=== PATIENT | male | born 1965 | race Caucasian/White ===

== ENCOUNTER 2020-08-19 15:39 | Inpatient (IN) | payer OTHER ==
[2020-08-19 21:15] VITALS: BMI 23.3
[2020-08-19] MEDS ORDERED: ONDANSETRON *ODT* 4 MG TABLET SL PRN (22:56)
[2020-08-19] MEDS ORDERED: ACETAMINOPHEN 325 MG TABLET (FP) PO PRN ×2 (22:56)
[2020-08-19] MEDS ORDERED: MENTHOL/PHENOL 1 EACH UD MM PRN (22:56)
[2020-08-19] MEDS ORDERED: IBUPROFEN 400 MG TABLET (FP) PO PRN (22:56)
[2020-08-19] MEDS ORDERED: MAGNESIUM CITRATE 300 ML BOTTLE PO PRN (22:56)
[2020-08-19] MEDS ORDERED: MAGNESIUM HYDROX 2400MG/30ML ORAL SUSPENSION 30 ML CUP PO PRN (22:56)
[2020-08-19] MEDS ORDERED: MAG HYDROX/AL HYDROX/SIMETH 30 ML UNIT-DOSE CUP PO PRN (22:56)
[2020-08-19] MEDS ORDERED: cloNIDine HCL 0.1 MG TABLET PO PRN (22:56)
[2020-08-19] MEDS ORDERED: BISMUTH SUBSALICYLATE 524 MG/30 ML UD PO PRN (22:56)
[2020-08-19] MEDS ORDERED: hydrOXYzine PAMOATE 25 MG CAPSULE (FP) PO PRN (22:56)
[2020-08-19] MEDS ORDERED: METHADONE HCL 10 MG TABLET (FOR DETOX USE ONLY) PO ONE (22:56)
[2020-08-20] MEDS ORDERED: METHADONE HCL 5 MG TABLET (FOR DETOX USE ONLY) ONE (08:58)
[2020-08-20] MEDS ORDERED: METHADONE HCL 10 MG TABLET (FOR DETOX USE ONLY) ONE (08:58)
[2020-08-20] MEDS ORDERED: METHADONE (DETOX) 20 MG, METHADONE (DETOX) 5 MG PO ONE (10:00)
[2020-08-20] MEDS: NICOTINE 14 MG/24 HOURS TOPICAL PATCH TD SCH (10:09)
[2020-08-20] MEDS: PRENATAL VITAMINS W/ FOLIC ACID TABLET (FP) PO SCH (10:10)
[2020-08-20] MEDS: NICOTINE POLACRILEX 2 MG GUM BUC PRN ×4 (10:10→22:15)
[2020-08-20 12:51] LABS: HEMATOCRIT 37.6 % (35.4-49); HEMOGLOBIN 12.8 GM/dL (11.7-16.9); MCH 30.4 pg (25.7-33.7); MCHC 33.9 g/dl (32.0-35.9); MEAN CELL VOLUME 89.6 fl (80-96); MEAN PLT VOLUME 8.6 fl (7.5-11.1); PLATELET COUNT 190 K/MM3 (134-434); RDW 14.6 % (11.9-15.9); WHITE BLOOD COUNT 7.7 K/mm3 (4.0-10.0)
[2020-08-20 12:52] LABS: POTASSIUM 3.3 mmol/L (3.5-5.1)
[2020-08-20 13:04] LABS: ALBUMIN 3.6 g/dl (3.4-5.0); CALCIUM 8.8 mg/dL (8.5-10.1)
[2020-08-20 13:05] LABS: BLOOD UREA NITROGEN 19.1 mg/dL (7-18)
[2020-08-20 13:08] LABS: CREATININE 0.6 mg/dL (0.55-1.3)
[2020-08-20] MEDS: hydrOXYzine PAMOATE 50 MG CAPSULE (FP) PO PRN (18:15)
[2020-08-20] MEDS ORDERED: PRAZOSIN HCL 2 MG CAPSULE PO SCH (22:00)
[2020-08-20] MEDS: MELATONIN 5 MG TABLETS PO SCH (22:12)
[2020-08-20] MEDS: THIAMINE HCL 100 MG TABLET (FP) PO SCH (22:13)
[2020-08-20] MEDS: QUEtiapine FUMARATE 100 MG TABLET (FP) PO SCH (22:13)
[2020-08-21] MEDS ORDERED: METHADONE HCL 10 MG TABLET (FOR DETOX USE ONLY) PO ONE (10:00)
[2020-08-21] MEDS: NICOTINE 14 MG/24 HOURS TOPICAL PATCH TD SCH (10:12)
[2020-08-21] MEDS: METHOCARBAMOL 500 MG TABLET PO PRN ×2 (10:12→22:09)
[2020-08-21] MEDS: PRENATAL VITAMINS W/ FOLIC ACID TABLET (FP) PO SCH (10:12)
[2020-08-21] MEDS: POTASSIUM CHLORIDE ORAL LIQUID 20 MEQ/15 ML PO SCH ×2 (13:19→22:09)
[2020-08-21] MEDS: NICOTINE POLACRILEX 2 MG GUM BUC PRN (13:21)
[2020-08-21] MEDS: hydrOXYzine PAMOATE 50 MG CAPSULE (FP) PO PRN ×2 (17:51→22:09)
[2020-08-21] MEDS: MELATONIN 5 MG TABLETS PO SCH (22:08)
[2020-08-21] MEDS: THIAMINE HCL 100 MG TABLET (FP) PO SCH (22:08)
[2020-08-21] MEDS: QUEtiapine FUMARATE 100 MG TABLET (FP) PO SCH (22:09)
[2020-08-21] MEDS: PRAZOSIN HCL 1 MG CAPSULE PO SCH (22:10)
[2020-08-22] MEDS ORDERED: METHADONE HCL 5 MG TABLET (FOR DETOX USE ONLY) ONE (09:48)
[2020-08-22] MEDS ORDERED: METHADONE HCL 10 MG TABLET (FOR DETOX USE ONLY) ONE (09:48)
[2020-08-22] MEDS ORDERED: METHADONE (DETOX) 10 MG, METHADONE (DETOX) 5 MG PO ONE (10:00)
[2020-08-22] MEDS: hydrOXYzine PAMOATE 50 MG CAPSULE (FP) PO PRN (10:08)
[2020-08-22] MEDS: PRENATAL VITAMINS W/ FOLIC ACID TABLET (FP) PO SCH (10:08)
[2020-08-22] MEDS: POTASSIUM CHLORIDE ORAL LIQUID 20 MEQ/15 ML PO SCH ×2 (10:08→22:16)
[2020-08-22] MEDS: NICOTINE 14 MG/24 HOURS TOPICAL PATCH TD SCH (10:09)
[2020-08-22] MEDS: diazePAM 5 MG TABLET PO PRN ×2 (11:30→18:11)
[2020-08-22] MEDS: NICOTINE POLACRILEX 2 MG GUM BUC PRN (18:13)
[2020-08-22] MEDS: QUEtiapine FUMARATE 100 MG TABLET (FP) PO SCH (22:16)
[2020-08-22] MEDS: PRAZOSIN HCL 1 MG CAPSULE PO SCH (22:16)
[2020-08-22] MEDS: MELATONIN 5 MG TABLETS PO SCH (22:16)
[2020-08-22] MEDS: THIAMINE HCL 100 MG TABLET (FP) PO SCH (22:16)
[2020-08-23] MEDS ORDERED: METHADONE HCL 10 MG TABLET (FOR DETOX USE ONLY) PO ONE (10:00)
[2020-08-23] MEDS: NICOTINE 14 MG/24 HOURS TOPICAL PATCH TD SCH (10:17)
[2020-08-23] MEDS: PRENATAL VITAMINS W/ FOLIC ACID TABLET (FP) PO SCH (10:17)
[2020-08-23] MEDS: NICOTINE POLACRILEX 2 MG GUM BUC PRN ×2 (10:18→14:30)
[2020-08-23] MEDS: diazePAM 5 MG TABLET PO PRN ×2 (10:20→14:27)
[2020-08-23 14:00] VITALS: BP 115/75; PULSE 80; TEMP 97.5
[2020-08-23] MEDS: MELATONIN 5 MG TABLETS PO SCH (23:17)
[2020-08-23] MEDS: PRAZOSIN HCL 1 MG CAPSULE PO SCH (23:17)
[2020-08-23] MEDS: QUEtiapine FUMARATE 100 MG TABLET (FP) PO SCH (23:17)
[2020-08-23] MEDS: THIAMINE HCL 100 MG TABLET (FP) PO SCH (23:18)
[2020-08-24] MEDS ORDERED: METHADONE HCL 5 MG TABLET (FOR DETOX USE ONLY) PO ONE (06:00)
== END 2020-08-23 17:00 | disposition home or self-care (01) | DRG 773 ==
LOC: YASAS 15:39 → UNDOADMIN 17:08 → Y3N 17:08 → Y6N 21:18
PROVIDERS: ADMIT Allergy & Immunology; ATTEND Allergy & Immunology
PROC: HZ2ZZZZ Detoxification Services for Substance Abuse Treatment (ICD-10-PCS; principal; 2020-08-19)
DX: F11.23 Opioid dependence with withdrawal (principal); F17.210 Nicotine dependence, cigarettes, uncomplicated; F19.282 Other psychoactive substance dependence with psychoactive substance-induced sleep disorder; F19.280 Other psychoactive substance dependence with psychoactive substance-induced anxiety disorder; F43.10 Post-traumatic stress disorder, unspecified; G47.00 Insomnia, unspecified; H54.413A Blindness right eye category 3, normal vision left eye; B18.2 Chronic viral hepatitis C; M41.9 Scoliosis, unspecified; R76.11 Nonspecific reaction to tuberculin skin test without active tuberculosis; Z62.810 Personal history of physical and sexual abuse in childhood; Z59.0 Homelessness; Z56.0 Unemployment, unspecified; Z99.89 Dependence on other enabling machines and devices
CPT/HCPCS: 36415; 80053; 84132; 85027; 86780; 93005; 93010; C9803; U0003